=== PATIENT | male | born 2000 | race Caucasian/White ===

== ENCOUNTER 2020-07-06 22:35 | Emergency (ER) | payer BC ==
[~2020-07-06] VITALS: Ht 170.2 cm; Wt 74.4 kg
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
--- NOTE | 2020-07-06 23:20 | NUR ---
PT BACK FROM CT
--- NOTE | 2020-07-07 00:14 | NUR ---
Patient discharged to home in stable condition. Written and verbal after care instructions given. Patient verbalizes understanding of instruction.
[2020-07-07 00:15] VITALS: BP 132/64
== END 2020-07-07 00:16 | disposition home or self-care (01) ==
LOC: ER 22:42
DX: R09.89 Other specified symptoms and signs involving the circulatory and respiratory systems (principal); R04.2 Hemoptysis; F84.0 Autistic disorder
CPT/HCPCS: 70490-TC; 71250-TC